=== PATIENT | female | born 1995 | race Hispanic/Latino ===

== ENCOUNTER 2017-04-30 17:47 | Emergency (ER) | payer OTHER ==
[~2017-04-30] VITALS: Ht 157.5 cm; Wt 93.0 kg
[~2017-04-30 17:47] MED LIST: ALBUTEROL SULF8.5 GM IH; CHROMAGEN,1 CAPSULE PO; IBUPROFEN800 MG PO; KEFLEX500 MG PO; NOHOMEMEDS; PRENATAL TABLE1 EAC3 PO; ZOFRAN4 MG PO
[2017-04-30 19:17] LABS: HEMATOCRIT 35.1 % (36.0-46.0); MCH 28.7 PG (29.0-34.0); MCHC 33.3 G/DL (30.0-36.0); RBC DIS.WIDTH-CV 13.6 % (11.8-14.6); RBC DIS.WIDTH-SD 43.1 % (39-53); RED BLOOD COUNT 4.08 M/uL (3.80-5.20)
[2017-04-30 19:28] LABS: CHLORIDE 107 mEq/L (99-109); POTASSIUM 3.5 mEq/L (3.7-5.4); SODIUM 137 mEq/L (136-147)
[2017-04-30 19:29] LABS: D-DIMER ELISA < 150.00 ng/mLDDU (<230); GLUCOSE 112 mg/dL (70-99)
[2017-04-30 19:31] LABS: ANION GAP 9 MEQ/L (2-14)
[2017-04-30 19:33] LABS: GFR ESTIMATE (CALCULATED) > 59 mL/min/
[2017-04-30 19:34] LABS: UREA NITROGEN (BUN) 13 mg/dL (9-23)
[2017-04-30 19:44] LABS: TROP-I INTERPRETATION NEGATIVE; TROPONIN-I < 0.01 ng/mL (0.0-0.30)
[2017-04-30 20:06] LABS: PLAT.SUFFICIENCY ADEQUATE; PLATELET COUNT 281 K/uL (156-360)
[2017-04-30] MEDS ORDERED: PROVENTIL,2.5 MG/3 M IH (21:21)
[2017-04-30] MEDS ORDERED: Nebulizer Machine (21:41)
[2017-04-30 22:27] VITALS: BP 116/68
== END 2017-04-30 22:30 | disposition home or self-care (01) ==
LOC: EXP 17:47 → EME 17:47 → EXP 22:30
PROVIDERS: Physician Assistant
DX: J06.9 Acute upper respiratory infection, unspecified (principal); J98.01 Acute bronchospasm; I45.10 Unspecified right bundle-branch block
CPT/HCPCS: 71020; 80048; 84484; 85027; 85379; 93005; 94640; 99281; 99284